=== PATIENT | male | born 1995 | race Caucasian/White ===

== ENCOUNTER 2018-07-20 18:55 | Emergency (ER) | payer BC, OTHER ==
[2018-07-20] MEDS ORDERED: ONDA4TAB11 PO (19:22)
[2018-07-20] MEDS ORDERED: OXYC-471 PO (19:22)
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
[2018-07-20 19:27] VITALS: BP 131/64
--- NOTE | 2018-07-20 19:47 | NUR ---
please merge chart
--- OUTSIDE RECORDS SUMMARY | 2018-07-20 19:57 | XMS REPORT | Referral Summary ---
Author Author Via [facility] Organization Via [facility], Orthopedics Address Unknown Phone Unavailable Care Team Providers Care Science Specialist Name Role Phone No PCP, Pt States PCP Encounter VC Date(s): 11/17/14 - 11/17/14 Via [facility], Orthopedics [address], [place] [address] Discharge Disposition: 01-Home or Self Care Attending Physician: Td Shetty MD Admitting Physician: Td Shetty MD Vital Signs Most recent to 1 oldest [Reference Range]: Temperature Oral 36.8 degC [35.8-37.3 degC] (11/17/14 9:26 AM) Peripheral Pulse 90 bpm Rate [60-100 bpm] (11/17/14 9:26 AM) Respiratory Rate 20 br/min [14-20 br/min] (11/17/14 9:26 AM) Blood Pressure 160/100 mmHg [90-140/60-90 mmHg] *HI* (11/17/14 9:26 AM) Problem List Condition Effective Dates Status Health Status Informant Acute Resolved pain(Confirmed) At risk for activity Resolved intolerance(Confirme d)1 At risk of pressure Resolved sore(Confirmed) Knowledge Resolved deficit(Confirmed)2 Tobacco Active patient user(Confirmed) 1Problem added automatically by system based on initiation of At Risk for Activity Intolerance Plan of Care 2Problem added automatically by system based on initiation of Knowledge Deficit Plan of Care Allergies, Adverse Reactions, Alerts Substance Reaction Severity Status codeine Active sulfa drugs Active Medications No data available for this section Results No data available for this section Immunizations No data available for this section Procedures Procedure Date Related Diagnosis Body Site Arthroscopy Knee (Left)1 01/29/15 Arthroscopy Knee2 12/11/14 Open Reduction Internal Fixation Patella 12/11/14 (Left)3 Knee injury4 Tonsillectomy 1auto-populated from documented surgical case 2auto-populated from documented surgical case 3auto-populated from documented surgical case 4right knee surgery 2013 Social History Social History Type Response Smoking Status Current every day smoker; Type: Cigarettes; Tobacco use per day: Less than Pack Assessment and Plan Extracted from: Title: Ortho Office Visit Note Author: Billy Sherwood MD Date: 11/17/14 Assessment/Plan 19-year-old male with left knee pain and mechanical symptoms. We will plan to get an MRI to evaluate for any ligamentous or meniscal pathology as well as identify where the loose osseous fragment came from. I will review the MRI and call the patient. Further plan pending MRI results.
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
--- OUTSIDE RECORDS SUMMARY | 2018-07-20 19:57 | XMS REPORT | Referral Summary ---
Author Author Via [facility] Organization Via [facility] Address Unknown Phone Unavailable Care Team Providers Care University Counselor Name Role Phone No PCP, Pt States PCP Encounter VC Date(s): 09/18/14 - 09/18/14 Via [facility] [address] [place] [address] [phone] Final: OTHER ORTHOPEDIC AFTERCARE Final: SPONDYLOLYSIS, CONGENITAL, LUMBOSACRAL REGION Discharge Disposition: 01-Home or Self Care Attending Physician: Reece Arrington MD Admitting Physician: Reece Arrington MD Vital Signs No data available for this section Problem List Condition Effective Dates Status Health [...] day: Less than Pack Assessment and Plan No data available for this section
--- OUTSIDE RECORDS SUMMARY | 2018-07-20 19:57 | XMS REPORT | Referral Summary ---
Author Author Via [facility] Organization Via [facility] Address Unknown Phone Unavailable Care Team Providers Care Hvac Installer Name Role Phone No PCP, Pt States PCP Encounter VC Date(s): 01/29/15 - 01/29/15 Via [facility] [address] [place] [address] [phone] Discharge Disposition: -Home or Self Care Attending Physician: Manjinder Umana MD Admitting Physician: Manjinder Umana MD Vital Signs Most recent to 1 oldest [Reference Range]: Temperature Skin 36.5 degC [36-37 degC] (01/29/15 12:40 PM) Temperature Temporal 36.7 degC Artery [36.3-37.8 (01/29/15 12:25 PM) degC] Peripheral Pulse 100 bpm Rate [60-100 bpm] (01/29/15 2:55 PM) Heart Rate Monitored 80 bpm [60-100 bpm] (01/29/15 12:25 PM) Respiratory Rate 16 br/min [14-20 br/min] (01/29/15 2:25 PM) Blood Pressure 140/80 mmHg [90-140/60-90 mmHg] (01/29/15 2:55 PM) Mean Arterial 104 mmHg Pressure, Cuff (01/29/15 12:25 PM) SpO2 98 % (01/29/15 2:55 PM) Problem List Condition Effective Dates Status Health [...] Status codeine Active sulfa drugs Active Medications aspirin 325 mg oral delayed release tablet 325 mg 1 tabs, Oral, Daily, 0 Refill(s) Start Date: 01/29/15 Status: Ordered Sullivan 5 mg-325 mg oral tablet 2 tabs, Oral, q4hr, Pain Moderate (4-6), 0 Refill(s) Start Date: 01/29/15 Status: Ordered Results Chemistry Most recent to 1 oldest [Reference Range]: Blood Glucose, 98 mg/dL Capillary [74-106 (01/29/15 9:31 AM) mg/dL] Immunizations No data available for this section Procedures Procedure Date Related Diagnosis Body Site Arthroscopy Knee (Left)1 01/29/15 Arthroscopy Knee2 12/11/14 Open Reduction Internal Fixation Patella 12/11/14 (Left)3 Knee injury4 Tonsillectomy 1auto-populated from documented surgical case 2auto-populated from documented surgical case 3auto-populated from documented surgical case 4right knee surgery 2013 Social History Social History Type Response Smoking Status Current every day smoker; Type: Cigarettes1 11 pack every 3-4 days Assessment and Plan No data available for this section
--- OUTSIDE RECORDS SUMMARY | 2018-07-20 19:57 | XMS REPORT | Continuity of Care Document ---
Author Author Via [facility] Organization [facility] Address Unknown Phone Unavailable Allergies Active Description Code Type Severity Reaction Onset Reported/Identified Relationship to Patient Clinical Status Yes codeine NKMA N/A N /A 08/07/2014 Yes sulfa drugs NKMA N/A N/A 08/07/2014 Yes codeine NKMA N/A N /A 08/07/2014 Yes sulfa drugs NKMA N/A N/A 08/07/2014 Medications There is no data. Problems Date Dx Coded Attending Type Code Diagnosis Diagnosed By 12/15/2014 Manjinder Umana MD Reason 821.21 FRACTURE OF FEMORAL CONDYLE, CLOSED 02/06/2015 Manjinder Umana MD Final F17.210 Nicotine dependence, cigarettes, uncomplicated 02/06/2015 Manjinder Umana MD Reason S72.422D Displaced fracture of lateral condyle of left femur, subsequent encounter f 10/30/2015 CRISTOPHER NORMAN MD Ot I10 ESSENTIAL (PRIMARY) HYPERTENSION 10/30/2015 CRISTOPHER NORMAN MD Ot R73.9 HYPERGLYCEMIA, UNSPECIFIED 10/30/2015 CRISTOPHER NORMAN MD Ot Z12.5 ENCOUNTER FOR SCREENING FOR MALIGNANT NE 01/26/2016 CRISTOPHER NORMAN MD Ot I10 ESSENTIAL (PRIMARY) HYPERTENSION 01/26/2016 CRISTOPHER NORMAN MD Ot R73.9 HYPERGLYCEMIA, UNSPECIFIED 01/26/2016 CRISTOPHER NORMAN MD Ot Z12.5 ENCOUNTER FOR SCREENING FOR MALIGNANT NE 01/26/2016 CRISTOPHER NORMAN MD Ot I10 ESSENTIAL (PRIMARY) HYPERTENSION 01/26/2016 CRISTOPHER NORMAN MD Ot R73.9 HYPERGLYCEMIA, UNSPECIFIED 01/26/2016 CRISTOPHER NORMAN MD Ot Z12.5 ENCOUNTER FOR SCREENING FOR MALIGNANT NE 03/02/2016 CRISTOPHER NORMAN MD Ot I10 ESSENTIAL (PRIMARY) HYPERTENSION 03/02/2016 CRISTOPHER NORMAN MD Ot R73.9 HYPERGLYCEMIA, UNSPECIFIED 03/02/2016 CRISTOPHER NORMAN MD Ot Z12.5 ENCOUNTER FOR SCREENING FOR MALIGNANT NE Procedures Code Description [place] [address] Open treatment of femoral fracture, distal end, medial or lateral condyle, 12/11/2014 73613 Removal of implant; deep (eg , buried wire, pin, screw, metal band, nail, ro 01/29/2015 Results There is no data. Encounters ACCT No. Visit Date/Time Discharge Status Pt. Type Provider Facility Loc./Unit Complaint [id number] 03/12/2015 08:52:00 03/12/2015 23:59:00 DIS Outpatient Morgan Driscoll [facility] Ortho 3 WEEK FOLLOW UP-KNEE/GKK [id number] 02/19/2015 08:55:00 02/19/2015 23:59:00 DIS Outpatient Zechariah Orona [facility] Ortho POST OP/KNEE 01.29.15/GKK [id number] 11/17/2014 09:14:00 11/17/2014 23:59:00 DIS Outpatient Td Shetty [facility] Ortho NPV ACC/REF BY TRAUMA/ DISTAL FEMUR FX- LEFT/GKK [id number] 01/29/2015 08:42:00 01/29/2015 23:59:59 CLS Outpatient Manjinder Umana MD Via [facility] [place] [facility] F3E Retained orthopedic hardware [id number] 12/11/2014 05:42:00 12/11/2014 14:35:00 DIS Outpatient [facility]jinder [facility]mana MD [facility] Knee Osteochondral Fracture [id number] 12/10/2014 11:40:00 Document Registration [id number] 10/29/2015 09:13:00 10/29/2015 23:59:59 CLS Outpatient CRISTOPHER NORMAN MD Via [facility] HTN, HYPERGLYCEMIA, MALIGNANT NEOPLASM OF PROSTATE [id number] 11/03/2014 18:35:00 11/03/2014 23:59:59 CLS Outpatient LAUREN ANTON [id number] 11/04/2014 02:28:54 ACT Document Registration
--- OUTSIDE RECORDS SUMMARY | 2018-07-20 19:57 | XMS REPORT | Referral Summary ---
Author Author [facility] Organization Via [facility], Orthopedics Address Unknown Phone Unavailable Care Team Providers Care Sponsorship Coordinator Name Role Phone No PCP, Pt States PCP Encounter Date(s): 02/19/15 - 02/19/15 Via [facility], Orthopedics [address], [place] [address] Discharge Disposition: 01-Home or Self Care Attending Physician: Zechariah Orona MD Admitting Physician: Zechariah Orona MD Vital Signs Most recent to 1 oldest [Reference Range]: Temperature Oral 36.8 degC [35.8-37.3 degC] (02/19/15 9:18 AM) Problem List Condition Effective Dates Status [...]
--- OUTSIDE RECORDS SUMMARY | 2018-07-20 19:57 | XMS REPORT | Referral Summary ---
Author Author Via [facility] Organization Via [facility] Address Unknown Phone Unavailable Care Team Providers Care Spray Drier Operator Name Role Phone No PCP, Pt States PCP Encounter VC Date(s): 01/29/15 - 01/29/15 Via [facility] [address] [place] [address] [phone] Final: Displaced fracture of lateral condyle of left femur, subsequent encounter for closed fracture with routine healing Final: Nicotine dependence, cigarettes, uncomplicated Discharge Disposition: 01-Home or Self Care Attending Physician: Manjinder Umana [...] drugs Active Medications No Known Medications Results Chemistry Most recent to 1 oldest [...]
--- OUTSIDE RECORDS SUMMARY | 2018-07-20 19:57 | XMS REPORT | Referral Summary ---
Author Author Via [facility] Organization Via [facility] Address Unknown Phone Unavailable Care Team Providers Care Noise Tester Name Role Phone No PCP, Pt States PCP Encounter VC Date(s): 12/11/14 - 12/11/14 Via [facility] [address] [place] [address] Final: FRACTURE OF FEMORAL CONDYLE, CLOSED Discharge Disposition: 01-Home or Self Care Attending Physician: Manjinder Umana MD Admitting Physician: Manjinder Umana MD Vital Signs Most recent to 1 oldest [Reference Range]: Temperature Tympanic 36.2 degC [36.6-38.1 degC] *LOW* (12/11/14 6:17 AM) Temperature Skin 35.8 degC [36-37 degC] *LOW* (12/11/14 11:10 AM) Peripheral Pulse 72 bpm Rate [60-100 bpm] (12/11/14 1:40 PM) Heart Rate Monitored 89 bpm [60-100 bpm] (12/11/14 10:30 AM) Respiratory Rate 16 br/min [14-20 br/min] (12/11/14 1:40 PM) Blood Pressure 135/77 mmHg [90-140/60-90 mmHg] (12/11/14 1:40 PM) Mean Arterial 94 mmHg Pressure, Cuff (12/11/14 7:18 AM) SpO2 94 % (12/11/14 1:40 PM) Problem List Condition Effective Dates Status [...] Range]: Blood Glucose, 98 mg/dL Capillary [74-106 (12/11/14 7:18 AM) mg/dL] Immunizations No data available for [...]
--- OUTSIDE RECORDS SUMMARY | 2018-07-20 19:57 | XMS REPORT | Referral Summary ---
Author Author Via [facility] Organization Via [facility] Address Unknown Phone Unavailable Care Team Providers Care Electrical Machinist Name Role Phone No PCP, Pt States PCP Encounter VC Date(s): 09/18/14 - 09/18/14 [facility] [address] [place] [address] Final: OTHER ORTHOPEDIC AFTERCARE Final: SPONDYLOLYSIS, CONGENITAL, [...] 0 Refill(s) Start Date: 01/29/15 Status: Ordered Keflex 500 mg oral capsule 500 mg 1 caps, Oral, TID, X 10 days, # 30 caps, 0 Refill(s), Pharmacy: [facility], 1 caps Oral TID,x10 days Start Date: 03/02/15 Stop Date: 03/12/15 Status: Ordered Results No data available for this section [...]
--- OUTSIDE RECORDS SUMMARY | 2018-07-20 19:57 | XMS REPORT | Referral Summary ---
Author Author [facility] Organization [facility], Orthopedics Address Unknown Phone Unavailable Care Team Providers Care Life Skills Coordinator Name Role Phone No PCP, Pt States PCP Encounter [facility] [id number] Date(s): 02/19/15 - 02/19/[address] [facility], Orthopedics [address], [place] [address] Discharge Disposition: 01-Home or Self Care [...] Refill(s) Start Date: 01/29/15 Status: Ordered Results No data available for [...]
== END 2018-07-20 19:27 | disposition home or self-care (01) ==
LOC: ER FS 19:02
DX: S30.22XA Contusion of scrotum and testes, initial encounter (principal); X58.XXXA Exposure to other specified factors, initial encounter

== ENCOUNTER → 2018-07-20 | Emergency (ER) | payer BC, OTHER ==
[~2018-07-20] VITALS: Ht 182.9 cm; Wt 86.2 kg
[~2018-07-20] MED LIST: CATHETER FLUSH 10 ML SYR IV PRN; HOLD METFORMIN - RECEIVED CONTRAST 20 ML VIAL IV SCH; IOHEXOL 350 MG/ML 100 ML (OMNIPAQUE 350) VIAL IV ONE; NS 100 ML (IVPB) BAG IV ONE; ONDANSETRON 4 MG/2 ML (SDV) Z0FRAN IVP ONE; morphine INJ 10 MG/ML 1ML (SYR OR VIAL) IVP STA
--- NOTE | 2018-07-20 15:51 | NUR ---
Report was given to Anitra STALLWORTH and care was transferred.
--- NOTE | 2018-07-20 19:10 | NUR ---
assumed care of this patient from Anitra STALLWORTH. will continue to monitor. patient is stable and awaiting transfer to [facility] via [facility].
[2018-07-20 19:27] VITALS: BP 131/64
--- OUTSIDE RECORDS SUMMARY | 2018-07-23 12:30 | XMS REPORT | Referral Summary ---
Author Author [facility]opedics Organization Via [facility], Orthopedics Address Unknown Phone Unavailable Care Team Providers Care Grouter Helper Name Role Phone No PCP, Pt States PCP Encounter VC [facility] [id number] Date(s): 02/19/15 - 02/19/15 Via [facility], Orthopedics [address], [place] [address] Discharge Disposition: 01-Home or Self Care [...]
--- OUTSIDE RECORDS SUMMARY | 2018-07-23 12:30 | XMS REPORT | Referral Summary ---
Author Author Via [facility] Organization [facility] Address Unknown Phone Unavailable Care Team Providers Care Cook Helper Pastry Name Role Phone No PCP, Pt States PCP Encounter [facility] Date(s): 09/18/14 - 09/18/14 [facility] [address] [place] [address] Final: OTHER ORTHOPEDIC AFTERCARE Final: SPONDYLOLYSIS, CONGENITAL, [...]
--- OUTSIDE RECORDS SUMMARY | 2018-07-23 12:30 | XMS REPORT | Referral Summary ---
Author Author [facility] Organization Via [facility], Orthopedics Address Unknown Phone Unavailable Care Team Providers Care Reprint Sorter Name Role Phone No PCP, Pt States PCP Encounter Date(s): 02/19/15 - 02/19/15 Via [facility], Orthopedics [address] [place], [place] [address] Discharge Disposition: 01-Home or Self Care [...]
--- OUTSIDE RECORDS SUMMARY | 2018-07-23 12:30 | XMS REPORT | Referral Summary ---
Author Author Via [facility] Organization [facility] Address Unknown Phone Unavailable Care Team Providers Care Health Sciences Program Coordinator Name Role Phone No PCP, Pt States PCP Encounter [facility] Date(s): 09/18/14 - 09/18/14 [facility] [address] [place] [address] Final: OTHER ORTHOPEDIC AFTERCARE Final: SPONDYLOLYSIS, CONGENITAL, [...] days, # 30 caps, 0 Refill(s), Pharmacy: [facility], 1 caps Oral TID,x10 days [...]
--- OUTSIDE RECORDS SUMMARY | 2018-07-23 12:30 | XMS REPORT | Referral Summary ---
Author Author Via [facility] Organization [facility] Address Unknown Phone Unavailable Care Team Providers Care Loop Drier Operator Name Role Phone No PCP, Pt States PCP Encounter [facility] Date(s): 01/29/15 - 01/29/15 [facility] [address] [place] [address] Final: Displaced fracture of lateral condyle of [...]
--- OUTSIDE RECORDS SUMMARY | 2018-07-23 12:30 | XMS REPORT | Referral Summary ---
Author Author Via [facility] Organization [facility] Address Unknown Phone Unavailable Care Team Providers Care Mold Dumper Name Role Phone No PCP, Pt States PCP Encounter [facility] Date(s): 12/11/14 - 12/11/14 [facility] [address] [place] [address] Final: FRACTURE OF FEMORAL CONDYLE, CLOSED Discharge [...]
--- OUTSIDE RECORDS SUMMARY | 2018-07-23 12:30 | XMS REPORT | Referral Summary ---
Author Author [facility]ics Organization Via [facility], Orthopedics Address Unknown Phone Unavailable Care Team Providers Care Development Manager Name Role Phone No PCP, Pt States PCP Encounter [facility] [id number] Date(s): 03/12/15 - 03/12/15 Via [facility], Orthopedics [address], [place] [address] Discharge Diagnosis: Knee pain Discharge Disposition: 01-Home [...] againfor theabscess but since he is from [place], transportation will be an issue for him. Patient has been instructed to followup with a local physician if the wound gets worse. From the look of it, it should get better without any significant problems. Patient understood and will followup with me in a as needed fashion Extracted from: Title: Clinical Document Author: Tram Sánchez RN Date: 03/12/15 Via [facility] [address] [place] [address] To Whom It May Concern: Maria Antonia [...]
--- OUTSIDE RECORDS SUMMARY | 2018-07-23 12:30 | XMS REPORT | Referral Summary ---
Author Author Via [facility] Organization Via [facility] Address Unknown Phone Unavailable Care Team Providers Care Dial Brusher Name Role Phone No PCP, Pt States PCP Encounter [facility] Date(s): 01/29/15 - 01/29/15 [facility] [address] [place] [address] [phone] Discharge Disposition: -Home or Self Care Attending [...] 0 Refill(s) Start Date: 01/29/15 Status: Ordered [place] 5 mg-325 mg oral tablet 2 tabs, [...]
--- OUTSIDE RECORDS SUMMARY | 2018-07-23 12:30 | XMS REPORT | Referral Summary ---
Author Author [facility]ics Organization [facility] Address Unknown Phone Unavailable Care Team Providers Care Medical Records Assistant Name Role Phone No PCP, Pt States PCP Encounter VC Date(s): 11/17/14 - 11/17/14 Via [facility], Orthopedics [address], [place] [address] Discharge Disposition: 01-Home or Self Care Attending [...]
--- OUTSIDE RECORDS SUMMARY | 2018-07-23 12:31 | XMS REPORT | Continuity of Care Document ---
Author Author [facility] Organization [facility] Address Unknown Phone Unavailable Allergies Active Description [...] NORMAN MD Ot R73.9 HYPERGLYCEMIA, UNSPECIFIED 03/02/2016 EMERSON DAHL, CRISTOPHER Syed Ot Z12.5 ENCOUNTER FOR SCREENING FOR MALIGNANT [place] Procedures Code [place] [address] Open treatment of femoral fracture, distal end, medial or lateral condyle, 12/11/2014 36985 Removal of implant; deep (eg , buried wire, pin, screw, metal band, nail, ro 01/29/2015 Results There is no data. Encounters ACCT No. Visit Date/Time Discharge Status Pt. Type Provider Facility Loc./Unit Complaint [id number] 01/29/2015 08:42:00 01/29/2015 23:59:59 CLS Outpatient Manjinder Umana MD Via [facility] on [facility] F3E Retained orthopedic hardware [id number] 12/11/2014 05:42:00 12/11/2014 14:35:00 DIS Outpatient Manjinder Umana MD Via [facility] on [facility] F3E Left Knee Osteochondral Fracture [id number] 12/10/2014 11:40:00 Document Registration [id number] 10/29/2015 09:13:00 10/29/2015 23:59:59 CLS Outpatient CRISTOPHER NORMAN MD Via [facility] LAB HTN, HYPERGLYCEMIA, MALIGNANT NEOPLASM OF PROSTATE [id number] 11/03/2014 18:35:00 11/03/2014 23:59:59 CLS Outpatient LAUREN ANTON Via [facility] QUICK [place]Web[facility] 11/04/2014 02:28:54 ACT Document Registration [id number] 03/12/2015 08:52:00 03/12/2015 23:59:00 DIS Outpatient Morgan Driscoll Via [facility] VCSP Ortho 3 WEEK FOLLOW UP-KNEE/GKK [id number] 02/19/2015 08:55:00 02/19/2015 23:59:00 DIS Outpatient Zechariah Orona Via [facility] VCSP Ortho POST OP/KNEE 15/GKK [id number] 11/17/2014 09:14:00 11/17/2014 23:59:00 DIS Outpatient Td Shetty Via [facility] VCSP Ortho NPV ACC/REF BY TRAUMA/ DISTAL FEMUR FX- LEFT/GKK
== END | disposition home or self-care (01) ==
LOC: MERGE 15:01 → ER FS 15:01
DX: S30.22XA Contusion of scrotum and testes, initial encounter (principal); V28.4XXA Motorcycle driver injured in noncollision transport accident in traffic accident, initial encounter
CPT/HCPCS: 99282

== ENCOUNTER 2019-11-20 16:30 | Emergency (ER) | payer OTHER, BC ==
[~2019-11-20] VITALS: Ht 182.8 cm; Wt 84.0 kg
[2019-11-20] MEDS ORDERED: HYDROcodone/APAP 5 MG/325 MG (LORTAB) TAB PO ONE (16:45)
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
--- NOTE | 2019-11-20 17:00 | NUR ---
Pt begins screaming at [facility] [place] and swearing begins pulling SL out and stating he is leaving. RN's to room. Pt up on feet with pain noted and refusing to sit down or a WC to be obtained. Pt wanting a phone to use then reports nevermind he is leaving. Pt is yelling at [facility] that is exiting ER maintaining social distance from patient but continuing to discuss the legal ramifications of need for consent for their legal draw testing or the refusal of he explains what may occur. The pt and [facility] exit into ED waiting room and argument by pt continues. Pt is doing all the raised voice yelling. Dr Martin has advised patient you have a fractured ankle and I do not think you really want to leave untreated. At the outside of ER a mother and friend are present that hear the argument and join in the argument and patient exits building. Staff from ER witness the 3 walking closer to [facility] in their yelling and arguing. Pt also in an argument with patient. EMS arriving for a patient transfer and become aware of intense argument outside and delay their transfer. Add'l request for TANNER called for.
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
--- NOTE | 2019-11-20 17:40 | NUR ---
Patient is now telling RN he is in so much pain and needs the continuation of his ER visit. Temp 37.3, P-90, RR-20, NIBP- 139/66, SaO2- 99%. Dr Martin ready to resume patient ED visit after delay of [facility] visit. Pt brought into his room and now resting on cart.
--- NOTE | 2019-11-20 17:55 | NUR ---
Short leg splint for ankle fracture applied by this RN. DNV's intact. Reviewed care and restrictions of the OCL splint for discharge and the planning for orthopedic follow up.
[2019-11-20] MEDS ORDERED: HYDR-83 PO (17:58)
[2019-11-20 18:20] VITALS: BP 139/66
--- NOTE | 2019-11-20 18:20 | NUR ---
Pt discharged at this time after review of home instructions discussed and patient verbalizes understanding. Rx-Hydrocodone given and patient declines crutches stating he already has some at home.
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
== END 2019-11-20 18:20 | disposition home or self-care (01) ==
LOC: EDUNIT# 16:34 → ER FS 16:35
DX: S82.51XA Displaced fracture of medial malleolus of right tibia, initial encounter for closed fracture (principal); S20.219A Contusion of unspecified front wall of thorax, initial encounter; R40.2142 Coma scale, eyes open, spontaneous, at arrival to emergency department; R40.2252 Coma scale, best verbal response, oriented, at arrival to emergency department; R40.2362 Coma scale, best motor response, obeys commands, at arrival to emergency department; V49.40XA Driver injured in collision with unspecified motor vehicles in traffic accident, initial encounter
CPT/HCPCS: 29515; 71045; 73610

== ENCOUNTER 2020-06-28 16:31 | Emergency (ER) | payer BC ==
[~2020-06-28] VITALS: Ht 180.3 cm; Wt 84.3 kg
[~2020-06-28 16:31] MED LIST changes: +ACHD5005 PO; -CATHETER FLUSH 10 ML SYR IV PRN; -HOLD METFORMIN - RECEIVED CONTRAST 20 ML VIAL IV SCH; -IOHEXOL 350 MG/ML 100 ML (OMNIPAQUE 350) VIAL IV ONE; -NS 100 ML (IVPB) BAG IV ONE; -ONDANSETRON 4 MG/2 ML (SDV) Z0FRAN IVP ONE; -morphine INJ 10 MG/ML 1ML (SYR OR VIAL) IVP STA
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
--- NOTE | 2020-06-28 18:10 | Diagnostic Imaging Report ---
HISTORY: Pain behind the left ear radiating to the top of the head over the mastoid. COMPARISON: CT cervical spine from 08/07/2014. TECHNIQUE: Thin cut axial CT of the temporal bones, bilaterally, were performed with sagittal and coronal reformats. No contrast was given. All CT scans use one or more of the following dose optimizing techniques: automated exposure control, MA and/or KvP adjustment based on patient size and exam type or iterative reconstruction. FINDINGS: The mastoids are well pneumatized, bilaterally. There are no fluid levels in the mastoid air cells, bilaterally. No cortical erosion or mass is seen, bilaterally. The middle ear is unremarkable. The cochlea and the semicircular canals appear normal. The internal auditory canals appear normal, bilaterally. No acute fracture is seen. There is no blunting of the scutum. No fluid collection is seen in the soft tissues on this noncontrast exam. There is a left posterior fossa arachnoid cyst measuring about 1.8 x 1.7 cm. There is a mucous retention cyst in the left sphenoid sinus. IMPRESSION: No CT finding of mastoiditis. No fluid collection or bony erosion. Dictated by: Dictated on workstation # [id number]
[2020-06-28] MEDS ORDERED: ACHD5005 PO (19:14)
[2020-06-28] MEDS ORDERED: RX-HYDROCODONE/APAP 5/325 MG #4 TAB PK PO PRN (19:15)
[2020-06-28 19:25] VITALS: BP 132/80
== END 2020-06-28 19:25 | disposition home or self-care (01) ==
LOC: EDUNIT# 16:31 → ER FS 16:33
DX: G93.0 Cerebral cysts (principal); F17.210 Nicotine dependence, cigarettes, uncomplicated
CPT/HCPCS: 70480